=== PATIENT | female | born 1965 | race Caucasian/White ===

== ENCOUNTER 2018-01-28 17:50 | Emergency (ER) | payer MEDICARE, MEDICAID ==
[~2018-01-28] VITALS: Ht 165.1 cm; Wt 117.9 kg
[2018-01-28] MEDS ORDERED: LIPITOR 20 MG T20 M1 PO (18:08)
[2018-01-28] MEDS ORDERED: COREG6.25 MG PO (18:08)
[2018-01-28] MEDS ORDERED: METFORMIN HCL500 MG PO (18:08)
[2018-01-28] MEDS ORDERED: PRAZOSIN HCL5 MG PO (18:08)
[2018-01-28] MEDS ORDERED: TOPAMAX 100 MG100 MG PO (18:09)
[2018-01-28] MEDS ORDERED: IMITREX 25 MG T25 MG PO (18:09)
[2018-01-28] MEDS ORDERED: PROZAC20 MG PO (18:09)
[2018-01-28] MEDS ORDERED: NORCO 5-325 TA1 EAC1 PO (20:28)
[2018-01-28 21:23] VITALS: BP 157/109
[2018-01-31] MEDS ORDERED: DOXEPIN HCL100 MG PO (13:22)
== END 2018-01-28 21:26 | disposition home or self-care (01) ==
LOC: M.ERS 17:50
DX: S42.212A Unspecified displaced fracture of surgical neck of left humerus, initial encounter for closed fracture (principal); W01.198A Fall on same level from slipping, tripping and stumbling with subsequent striking against other object, initial encounter; Y93.89 Activity, other specified; Y92.89 Other specified places as the place of occurrence of the external cause; Y99.8 Other external cause status

== ENCOUNTER 2018-02-01 06:29 | Inpatient (IN) | payer MEDICARE, MEDICAID ==
[~2018-02-01] VITALS: Ht 165.1 cm; Wt 112.9 kg
[~2018-02-01 06:29] MED LIST: COREG6.25 MG PO; DOXEPIN HCL100 MG PO; IMITREX 25 MG T25 MG PO; LIPITOR 20 MG T20 M1 PO; METFORMIN HCL500 MG PO; NORCO 5-325 TA1 EAC1 PO; PRAZOSIN HCL5 MG PO; PROZAC20 MG PO; TOPAMAX 100 MG100 MG PO
[2018-02-01] MEDS ORDERED: TRIMETHOPRIM /P10 M1 OPHTHALMIC (07:34)
[2018-02-01] MEDS ORDERED: TOBRAMYCIN-DEXAM5 ML OPHTHALMIC (07:35)
[2018-02-01 12:41] VITALS: BP 157/85
--- NOTE | 2018-02-01 15:19 | NUR ---
ASSUMED CARE OF PT AT 1145. PT ABLE TO RESPOND TO QUESTIONS BUT IS LETHARGIC AND VERY SLEEPY. PT NOT ABLE TO QUANTIFY PAIN AT THIS TIME AND DRIFTS OFF TO SLEEP DURING CONVERSATION. PT VSS AT THIS TIME, CAPNOGRAPHY ON PT AT THIS TIME. WILL CONTINUE TO ASSESS AND MONITOR. 1425-PT REFUSING TO WEAR CAPNOGRAPHY AT THIS TIME. PT A&OX4 AT THIS TIME, PT FAMILY AT BEDSIDE AT THIS TIME. WILL LET TEAM KNOW PEDRO LUIS. PT AND FAMILY STATED THAT SHE HAS EYEDROPS AT THE BEDSIDE AND WANTS TO KNOW IF THE TEAM IS AGREEABLE TO ALLOWING HER TO USE THEM, WILL HAVE PHARMACY VERIFY MEDICATION.
--- NOTE | 2018-02-01 19:02 | NUR ---
PT VSS THIS SHIFT. PT HAS C/O PAIN THIS SHIFT AND HAS TOLERATED BOTH IV AND PO PAIN MEDICATIONS. PT UNDERSTANDS TO CALL OUT FOR PAIN MANAGEMENT. PT ABLE TO TOELRATE DIET THIS SHIFT. PIX STILL NEED TO BE TAKEN OF PT WOUNDS UNDER HER SLING, WILL LET NOC SHIFT KNOW. PT UNDERSTANDS TO CALL OUT FOR AMBULATION NEEDS, PT ABLE TO AMBULATE TO RESTROOM TWICE THIS SHIFT WITH ASSIST X1. PT TOLERATING RA AND REFUSED CAPNOGRAPHY. PT HAS HIGH SPIRITS AND MULTIPLE VISITORS THIS SHIFT.
--- NOTE | 2018-02-01 20:33 | NUR ---
THIS RN AND BUSHRA RN VIEWED PT WOUND ON RT BREAST DUE TO SLING HOLDING WRIST UP AGAINST BREAST WITH PT JEWELERY UP AGAINST HER SKIN. SKIN IS CDI WITH REDNESS AND BRUISING NO OPEN SKIN IS NOTED AT THIS TIME. MICROBIOLOGY QUALITY CONTROL TECHNICIAN DISCOVERED SITE WHEN GETTING PT PREPPED FOR SURGERY THIS AM.
[2018-02-01 21:40] VITALS: BP 112/68
--- NOTE | 2018-02-01 23:58 | NUR ---
PT NOT ABLE TO TOLERATE NC
[2018-02-02 00:30] VITALS: BP 113/68
[2018-02-02 04:55] VITALS: BP 124/71
[2018-02-02 08:00] VITALS: BP 116/65
--- NOTE | 2018-02-02 09:54 | NUR ---
PATIENT HAS BEEN RESTLESS THROUGHOUT THE NIGHT. PAIN MEDICATIONS GIVEN TO HELP WITH PAIN AND CHARTED. VSS ON RA, ALTHOUG BP SLIGHTLY ELEVATED. DRESSING TO LEFT SHOULDER IS C/D/I AND BINDER/SLING IN PLACE. PATIENT INSTRUCTED TO USE CALL LIGHT WHEN NEEDING ASSISTANCE. HOURLY ROUNDS MADE. WILL CONTINUE WITH PLAN OF CARE AND NURSING TO MONITOR.
[2018-02-02 12:00] VITALS: BP 116/65
--- NOTE | 2018-02-02 13:05 | EKG ---
[place] [address] ELECTROCARDIOGRAM REPORT Name: LUL DAMON Room: [address] IN ..#: [id number] Admission: 02/01/18 Attend Phys: Yasmine Montano Discharge: Date of : 67 Report #: [id number] THIS REPORT FOR: //name// [facility] Test Date: 2018-02-01 Test Time: 07:18:47 Pat Name: LLU DAMON Department: Room: Gender: F Pharmacy Informaticist: : 1965 Requested By: Adriel Goyal Order Number: [id number] Reading MD: Arvind Nichols Measurements Intervals [place] Rate: 78 P: 49 [place]: 172 QRS: -3 QRSD: 109 T: 38 QT: 350 QTc: 399 Interpretive Statements Sinus rhythm No previous ECG available for comparison Electronically Signed On 02-02-2018 13:05:37 CDT by Arvind Nichols [email or web address] <ELECTRONICALLY SIGNED> By: Arvind Nichols MD, [facility] 02/02/18 1305 0718 0718 Arvind Nichols MD, FACC /EPI
[2018-02-02 14:48] VITALS: BP 116/65
[2018-02-02] MEDS ORDERED: COLACE100 MG PO (15:08)
[2018-02-02] MEDS ORDERED: ELIQUIS2.5 MG PO (15:12)
[2018-02-02] MEDS ORDERED: METFORMIN HCL500 MG PO (15:13)
[2018-02-02] MEDS ORDERED: OXYCODONE HCL 55 MG PO (15:26)
[2018-02-02] MEDS ORDERED: HYDROCODON-ACE1 EAC7 PO (15:28)
[2018-02-02 20:58] VITALS: BP 116/65
--- NOTE | 2018-02-02 21:02 | NUR ---
PATIENT LEFT UNIT BY WHEELCHAIR AT 1615 WITH NURSING STAFF. IV DC'D. EDUCATED PATIENT AND DAUGHTER ON NEW MED SCRIPTS AND DISCHARGE INSTRUCTIONS. PATIENT AND DAUGHTER VERBALIZED UNDERSTANDING. ALL BELONGINGS LEFT WITH PATIENT
--- NOTE | 2018-02-05 12:42 | OP ---
[facility] [address] [place] [address] OPERATIVE REPORT Name: LUL DAMON Zay Room: [address] IN M.R.#: [id number] Admission: 02/01/18 Attend Phys: Yasmine Montano Discharge: 02/02/18 Date of : 67 Report #: [id number] THIS REPORT FOR: //name// CC: Adriel Goyal FAM unknown Hang Orantes PREOPERATIVE DIAGNOSIS: Displaced left greater tuberosity fracture. POSTOPERATIVE DIAGNOSIS: Displaced left greater tuberosity fracture. SURGERY PERFORMED: Open reduction and internal fixation of left shoulder fracture with a Synthes plate and screws and repair of the rotator cuff. SURGEON: Adriel Goyal DO SUPERVISOR SANDBLASTER: Tre Lucero DO, resident. ANESTHESIA: General anesthetic. ANTIBIOTICS: The patient received Ancef 2 grams IV piggyback. DRAINS: She has no drains. COMPLICATIONS: No complications. SPECIMENS: The patient has no specimens. ESTIMATED BLOOD LOSS: 150 mL. GROSS FINDINGS: Prior to surgery the patient had a fall injury over a gas hose and then sustained a fracture of this left shoulder. The patient at this point in time intraoperatively correlated with a displaced greater tuberosity fracture. Some anterior comminution was noted and slightly proximally as well. The cuff was torn off of that area at the most superior aspect. The patient's post-reduction and repair of the cuff demonstrated excellent range of motion, stable to the fracture pattern. SURGERY IN DETAIL: The patient was taken to the operating room and placed on table, given the benefit of a general anesthetic and placed in a beach chair position. The patient did have a chlorhexidine scrub and chlorhexidine prep for the shoulder surgery on that left side. She had a sterile draping. A timeout was called and verified for the left. Surgery began with a deltopectoral incision just lateral to the coracoid extending down to the axillary region with a 10 blade scalpel through skin and subcutaneous tissues. Blunt dissection was carried down to the deltopectoral interval. Cephalic vein was easily identified and retracted laterally with the deltoid. Surgery [place] [address] OPERATIVE REPORT Name: LUL DAMON Room: [address] IN ..#: [id number] Admission: 02/01/18 Attend Phys: Yasmine Montano Discharge: 02/02/18 Date of : 67 Report #: [id number] in time going through the deltopectoral fascia area. The cuff was easily identified proximally of the shoulder as well as the greater tuberosity, which was displaced posteriorly and inferiorly. The fracture fragment was freed up. It was cleared of hematoma, copiously irrigated and reduced, initially held by 2 K wires. Once this was in place, then we elected to use the Synthes proximal humeral plate to transfix it to the humerus, which was done both proximally and distally, locking screws proximally, cortical screws distally. The fracture pattern was stable under this plate through the arc of motion. Screws were appropriate position on x-rays. Surgery continued now with repairing the rotator cuff and tied it down to the plate through screw holes using #1 Tycron in [id number]-[id number] fashion x 2. Arm was placed again through motion with good stable range of motion of the cuff. We now copiously irrigated with normal saline irrigation. A deltopectoral interval was not closed. Subcutaneous tissue was closed with 2-0 Monocryl, running V-Loc and Dermabond to the skin. The patient at this time was transferred off table, taken to recovery in stable condition. I attest I was present for all critical aspects of the surgery. Needle, instrument, sponge counts correct. Care was taken to protect all neurovascular structures during the surgery as well. <ELECTRONICALLY SIGNED> By: Adriel Goyal DO 02/05/18 1242 0936 [id number] Goyal DO /ban
--- NOTE | 2018-02-05 12:42 | OP ---
[facility] [address] [place] [address] OPERATIVE REPORT Name: FIFI DAMONGAVI Collazo Room: [address] IN M.R.#: [id number] Admission: 02/01/18 Attend Phys: Yasmine Montano Discharge: 02/02/18 Date of : 67 Report #: [id number] THIS REPORT FOR: //name// CC: Adriel Goyal FAM unknown Hang Orantes DICTATED BY: Tre Lucero DO DATE OF SERVICE: 02/01/2018 PREOPERATIVE DIAGNOSIS: Left shoulder proximal humerus fracture with displacement of the greater tuberosity. POSTOPERATIVE DIAGNOSIS: Left shoulder proximal humerus fracture with displacement of the greater tuberosity. PROCEDURE PERFORMED: 1. ORIF left proximal humerus fracture. 2. Rotator cuff repair. PRIMARY SURGEON: Adriel Goyal DO JUNIOR SALES REPRESENTATIVE: Tre Lucero DO ANESTHESIA: General. ESTIMATED BLOOD LOSS: 150 mL. SPECIMENS: None. COMPLICATIONS: None. IMPLANTS: Synthes periarticular proximal humerus locking plate. INDICATIONS: The patient is a 52-year-old female that unfortunately suffered a fall onto her left shoulder, landing directly on the concrete. This was earlier this week. She underwent a CT that showed significant displacement of her greater tuberosity. Due to the nature of her injuries, recommend she undergo the above-mentioned procedure. She presents today for surgery. Risks, benefits, complication, alternatives of surgery have been reviewed and discussed with her and she is wishing to proceed. DESCRIPTION OF PROCEDURE: The patient taken to the OR suite, placed supine on the OR table, given the benefit of general anesthetic. She was then placed in the beach chair position, head secured in anatomic alignment. The patient was [facility] [address] [place] [address] OPERATIVE REPORT Name: LUL DAMON Room: [address] M.R.#: [id number] Admission: 02/01/18 Attend Phys: Yasmine Montano Discharge: 02/02/18 Date of : 67 Report #: [id number] prepped and draped in the usual sterile fashion. Prior to procedure, timeout was taken confirming correct site, patient and procedure. Procedure began with standard deltopectoral incision. Dissection was carried down to the level of the cephalic vein. This was mobilized and retracted laterally with the deltoid. The clavipectoral fascia was released and the conjoint tendon was exposed. This was carefully retracted medially. We were able to expose the shoulder capsule. Subdeltoid adhesions were released. The arm was internally rotated and the greater tuberosity fracture was identified. There was posterior superior displacement that was visualized. The fracture edges were delineated and all soft tissue debris was removed from the fracture site. Fracture was mobilized using a [place]. This was then reduced using a [id number]-ka-btxlx clamp and pinned in place with K wires. C-arm was brought in for imaging and reduction was in good alignment. We then elected to place a periarticular proximal humerus plate. This was held in place with K wires and position was confirmed on C-arm imaging as well. A distal cortical screw was used to compress our plate to the bone. We then proceeded to place 4 proximal locking cannulated screws in the proximal fragment. A final cortical nonlocking screw was placed distally in the shaft. The rotator cuff was also repaired and secured to the plate using 0 Ethibond [id number]-fl-trkfw sutures. Two of these were placed. C-arm was brought in for final images. All hardware was in good position, no hardware penetration within the joint. The wound was thoroughly irrigated. Layered closure was performed, 2-0 Vicryl for subcuticular, running Stratafix and Dermabond glue. Sterile dressings were applied. The patient tolerated the procedure well. All sponge and needle counts were correct x 2. Arm was placed in her immobilizer. She was transferred to PACU in good stable condition. <ELECTRONICALLY SIGNED> By: Adriel Goyal DO 02/05/18 1242 1035 [id number] Goyal DO /ban
== END 2018-02-02 16:15 | disposition home or self-care (01) | DRG 493 ==
LOC: M.SUR 06:29 → EDSTATUS 08:15 → M.SUR 08:22 → M.TBA 10:25 → M.ORTHSURG 10:25
PROVIDERS: ADMIT Internal Medicine
PROC: 0LQ20ZZ Repair Left Shoulder Tendon, Open Approach (ICD-10-PCS; principal; 2018-02-01)
PROC: 0PSD04Z Reposition Left Humeral Head with Internal Fixation Device, Open Approach (ICD-10-PCS; principal; 2018-02-01)
DX: S42.252A Displaced fracture of greater tuberosity of left humerus, initial encounter for closed fracture (principal); Z68.41 Body mass index [BMI] 40.0-44.9, adult; E11.9 Type 2 diabetes mellitus without complications; E66.01 Morbid (severe) obesity due to excess calories; I10 Essential (primary) hypertension; G43.909 Migraine, unspecified, not intractable, without status migrainosus; F17.210 Nicotine dependence, cigarettes, uncomplicated; E78.00 Pure hypercholesterolemia, unspecified; W01.0XXA Fall on same level from slipping, tripping and stumbling without subsequent striking against object, initial encounter; Y93.89 Activity, other specified; Y92.89 Other specified places as the place of occurrence of the external cause; Y99.8 Other external cause status

== ENCOUNTER 2021-04-16 16:06 | Emergency (ER) | payer MEDICARE, MEDICAID ==
[~2021-04-16] VITALS: Ht 165.1 cm; Wt 68.5 kg
[~2021-04-16 16:06] MED LIST changes: +COLACE100 MG PO; +ELIQUIS2.5 MG PO; +HYDROCODON-ACE1 EAC7 PO; +OXYCODONE HCL 55 MG PO; +TOBRAMYCIN-DEXAM5 ML OPHTHALMIC; +TRIMETHOPRIM /P10 M1 OPHTHALMIC
[2021-04-16] MEDS ORDERED: TIZANIDINE HCL4 M1 PO (16:26)
[2021-04-16] MEDS ORDERED: DESYREL150 MG PO (16:26)
[2021-04-16] MEDS ORDERED: NEURONTIN 300M300 M2 PO (16:26)
[2021-04-16] MEDS ORDERED: REXULTI0.25 MG PO (16:27)
[2021-04-16] MEDS ORDERED: ALREX5 ML EA. EYE (16:28)
[2021-04-16] MEDS ORDERED: XYZAL5 MG PO (16:29)
[2021-04-16 18:18] LABS: ABSOLUTE EOSINOPHILS 0.1 thou/uL (0.0-0.7); ABSOLUTE LYMPHOCYTES 3.4 thou/uL (0.8-5.3); ABSOLUTE MONOCYTES 0.3 thou/uL (0.0-1.2); ABSOLUTE NEUTROPHILS 3.1 thou/uL (1.6-8.1); BASOPHILS 0.5 %; EOSINOPHILS 1.2 %; HEMATOCRIT 38.1 % (37.0-47.0); LYMPHOCYTES 48.3 %; MCH 30.6 pg (26.0-34.0); MCV 90.1 fL (80.0-100.0); MPV 8.8 fl. (7.2-11.1); NUCLEATED RBCS 0 /100WBC; PLATELET COUNT* 227 thou/uL (150-400); RBC 4.23 mil/uL (4.20-5.00); RDW-CV 14.2 % (10.5-14.5); WBC 6.9 thou/uL (4.0-11.0)
[2021-04-16 18:28] LABS: CALCIUM 8.7 mg/dL (8.5-10.1); CREATININE 0.9 mg/dL (0.6-1.3); POTASSIUM 3.6 mmol/L (3.5-5.1)
[2021-04-16 18:40] LABS: ALBUMIN 3.7 g/dL (3.4-5.0); TOTAL BILIRUBIN 0.3 mg/dL (<0.1-1.0)
[2021-04-16 19:12] LABS: URINE BILIRUBIN NEGATIVE (Negative); URINE BLOOD NEGATIVE (Negative); URINE CLARITY CLEAR; URINE COLOR YELLOW; URINE GLUCOSE-RANDOM NEGATIVE (Negative); URINE KETONES NEGATIVE (Negative); URINE LEUKOCYTES-REFLEX NEGATIVE (Negative); URINE NITRITE-REFLEX NEGATIVE (Negative); URINE PROTEIN NEGATIVE (Negative); URINE UROBILINOGEN 0.2 E.U./dl (0.2-1.0)
[2021-04-16] MEDS ORDERED: PHENERGAN 25 MG25 M1 PO (20:32)
[2021-04-16] MEDS ORDERED: SUMATRIPTAN SUC50 MG PO (20:32)
[2021-04-16 20:49] VITALS: BP 105/68
--- NOTE | 2021-04-18 13:59 | EKG ---
[place] [address] ELECTROCARDIOGRAM REPORT Name: LUL DAMON Room: [facility]#: [id number] Admission: 04/16/21 Attend Phys: Discharge: 04/16/21 Date of : 67 Date of Service: 04/16/211741 Report #: [id number] THIS REPORT FOR: //name// [facility] ED Test Date: 2021-04-16 Test Time: 17:42:18 Pat Name: LUL DAMON Department: Room: Gender: F Coconut Candy Maker: CD : 1965 Requested By: Luz Munguia Order Number: [id number] MD: Ok Link Measurements Intervals [place] Rate: 57 P: 57 [place]: 163 QRS: 1 QRSD: 106 T: 46 QT: 422 QTc: 411 Interpretive Statements Sinus rhythm Baseline wander in lead(s) V1 Compared to ECG 02/01/2018 07:18:47 No significant changes Electronically Signed On 04-18-2021 13:59:04 CDT by Ok Link [email or web address] <ELECTRONICALLY SIGNED> By: Ok Link MD, [facility] 04/18/21 1359 1742 1742 Ok Link MD, [facility] /EPI
== END 2021-04-16 20:50 | disposition home or self-care (01) ==
LOC: M.ERS 16:06
PROVIDERS: Nurse Practitioner Family
DX: G43.909 Migraine, unspecified, not intractable, without status migrainosus (principal); G93.0 Cerebral cysts; R55 Syncope and collapse; I10 Essential (primary) hypertension; E78.00 Pure hypercholesterolemia, unspecified; F17.210 Nicotine dependence, cigarettes, uncomplicated; Z98.51 Tubal ligation status; Z90.710 Acquired absence of both cervix and uterus